=== PATIENT | female | born 1990 | race Caucasian/White ===

== ENCOUNTER 2018-11-16 10:37 | Emergency (ER) | payer BC, MEDICAID ==
--- NOTE | 2018-11-16 11:43 | C.PDOC ---
History Of Present Illness 27 year old female presents to the ED for evaluation after she twisted her left foot yesterday. Patient states she misstepped while getting off a ladder and twisted her left foot. Patient has a history of "screws" placed inside her foot s/p hallux valgus surgery and is requesting x-ray to check if the area is okay. Patient states she has been ambulatory with a limp and denies head injury, loss of consciousness, extremity numbness/weakness. Time Seen by Provider: 11/16/18 10:44 Chief Complaint (Nursing): Lower Extremity Problem/Injury History Per: Patient History/Exam Limitations: no limitations Onset/Duration Of Symptoms: Hrs Current Symptoms Are (Timing): Still Present - Ankle/Foot Description Of Injury: Twisted Past Medical History Reviewed: Historical Data, Nursing Documentation, Vital Signs Vital Signs: Last Vital Signs Temp 98.5 F 11/16/18 10:38 Pulse 81 11/16/18 10:38 Resp 20 11/16/18 10:38 BP 119/76 11/16/18 10:38 Pulse Ox 98 11/16/18 10:38 - Medical History PMH: No Chronic Diseases Surgical History: Appendectomy Family History: States: Unknown Family Hx - Social History Hx Tobacco Use: No Hx Alcohol Use: No Hx Substance Use: No Review Of Systems Musculoskeletal: Positive for: Foot Pain (left), Other (left knee pain ) Neurological: Negative for: Weakness, Numbness Physical Exam - Physical Exam Appears: Non-toxic, No Acute Distress Skin: Normal Color, Warm, Dry, No Ecchymosis Head: Atraumatic, Normacephalic Eye(s): bilateral: Normal Inspection Oral Mucosa: Moist Neck: Supple Chest: Symmetrical, No Deformity Extremity: Normal ROM, No Tenderness, Capillary Refill (less than 2 seconds ), No Deformity, No Swelling Pulses: Left Dorsalis Pedis: Normal, Right Dorsalis Pedis: Normal Neurological/Psych: Oriented x3, Normal Speech, Normal Cognition, Normal Sensation ED Course And Treatment O2 Sat by Pulse Oximetry: 98 (on RA) Pulse Ox Interpretation: Normal - Other Rad Foot XR X-Ray: Interpreted by Me, Viewed By Me Interpretation: no fx or dislocation Progress Note: Urinalysis and LS Spine XR ordered and reviewed. Ice applied to affected area. Air cast applied by CP. Patient given crutches. Patient is advised to follow up with orthopedic care within 1-2 days for further evaluation. Disposition - Disposition Referrals: Hakeem Hernandez MD [Staff Provider] - Disposition: HOME/ ROUTINE Disposition Time: 11:41 Condition: STABLE Additional Instructions: Rest, ice and elevate the area. Follow up with bone doctor in 1-2 days. Return to ER if symptoms persist or worsen. Prescriptions: Ibuprofen [Motrin] 400 mg PO Q6 PRN #20 tab PRN Reason: Fever Instructions: Ankle Sprain (DC) Forms: [employer] (Upper Sor[employer]) - Clinical Impression Clinical Impression: Foot sprain - PA / HELIARC WELDER / Resident Statement MD/DO has reviewed & agrees with the documentation as recorded. - Scribe Statement The provider has reviewed the documentation as recorded by the Scribe (Caryn Brandon) All medical record entries made by the Scribe were at my direction and personally dictated by me. I have reviewed the chart and agree that the record accurately reflects my personal performance of the history, physical exam, medical decision making, and the department course for this patient. I have also personally directed, reviewed, and agree with the discharge instructions and disposition.
[2018-11-16 11:49] VITALS: BP 108/73; PULSE 73; RESP 16; TEMP 98.6
[2018-11-16 11:54] VITALS: O2SAT 98
--- NOTE | 2018-11-16 17:43 | RAD ---
Date of service: 11/16/2018 PROCEDURE: Left Ankle Radiographs. HISTORY: Trauma COMPARISON: None available. FINDINGS: BONES: There is a cylindrical threaded screw located within the joint space between the talus and calcaneus consistent the representing fusion hardware which appears intact... No evidence of acute displaced fracture nor dislocation. There is a osteotomy screw seen within the distal 1st metatarsal JOINTS: As above. No significant osteoarthritis. Ankle mortise maintained. Talar dome intact SOFT TISSUES: Normal. OTHER FINDINGS: None. IMPRESSION: No acute fractures. There is a cylindrical threaded screw located within the joint space between the talus and calcaneus consistent the representing fusion hardware which appears intact... No evidence of acute displaced fracture nor dislocation. There is a osteotomy screw seen within the distal 1st metatarsal
--- NOTE | 2018-11-16 17:51 | RAD ---
Date of service: 11/16/2018 PROCEDURE: Left Foot Radiographs. HISTORY: trauma COMPARISON: Correlation made with concurrent plain film radiographs of the ankle FINDINGS: BONES: No evidence of acute displaced fracture nor dislocation. There is a cylindrical threaded screw located within the joint space between the talus and calcaneus consistent the representing fusion hardware which appears intact. Redemonstrated is a osteotomy screw within the distal 1st metatarsal. JOINTS: As above SOFT TISSUES: Normal. OTHER FINDINGS: None. IMPRESSION: No evidence of acute displaced fracture nor dislocation. There is a cylindrical threaded screw located within the joint space between the talus and calcaneus consistent the representing fusion hardware which appears intact. Redemonstrated is a osteotomy screw within the distal 1st metatarsal.
== END 2018-11-16 11:49 | disposition home or self-care (01) ==
LOC: C.ER 10:37
DX: S93.602A Unspecified sprain of left foot, initial encounter (principal); X50.1XXA Overexertion from prolonged static or awkward postures, initial encounter